=== PATIENT | male | born 1995 | race Caucasian/White ===

== ENCOUNTER 2025-03-23 14:45 | Emergency (ER) | payer SELFPAY ==
[~2025-03-23] VITALS: Ht 180.3 cm; Wt 66.0 kg
[2025-03-23 14:57] VITALS: TEMP 36.7; O2SAT 100
[2025-03-23] MEDS ORDERED: LIDO-53 TP (16:57)
[2025-03-23] MEDS ORDERED: IBUP-1455 MT (16:57)
[2025-03-23] MEDS: LIDOCAINE 5% PATCH TOP SCH (17:04)
[2025-03-23 17:09] VITALS: BP 111/84; PULSE 85; RESP 16; O2SAT 100
== END 2025-03-23 17:43 | disposition home or self-care (01) ==
LOC: ER 14:45
DX: R07.81 Pleurodynia (principal); R07.89 Other chest pain; F12.90 Cannabis use, unspecified, uncomplicated
CPT/HCPCS: 71101; 99283